=== PATIENT | male | born 1960 | race Caucasian/White ===

== ENCOUNTER 2017-01-08 09:30 | Emergency (ER) | payer BC ==
[2017-01-08 09:58] LABS: Basophils % (Auto) 0.3 % (0.0-1.8); Eosinophils % (Auto) 0.2 % (0.0-4.3); Hematocrit 42.2 % (35.5-45.6); Hemoglobin 13.6 gm/dl (11.8-15.2); Mean Corpuscular HGB Conc 32 % (32-34); Mean Corpuscular Hemoglobin 27 pg (28-32); Mean Corpuscular Volume 85 fl (84-94); Platelet Count 107 K/mm3 (140-440); Red Blood Count 4.99 M/mm3 (3.65-5.03); Red Cell Distribution Width 15.2 % (13.2-15.2); White Blood Count 16.5 K/mm3 (4.5-11.0)
[2017-01-08 10:22] LABS: Albumin 3.4 g/dL (3.9-5); Albumin/Globulin Ratio 0.9 %; BUN/Creatinine Ratio 17.33; Bilirubin,Total 0.3 mg/dL (0.1-1.2); Calcium 9.1 mg/dL (8.4-10.2); Chloride 99.3 mmol/L (98-107); Potassium 3.8 mmol/L (3.6-5.0)
[2017-01-08 11:02] LABS: Bacteria,Urine 1+ /HPF (Negative); Bilirubin,Urine NEG (Negative); Blood,Urine SM (Negative); Ketones,Urine TR mg/dL (Negative); Leukocyte Esterase,Urine MOD (Negative); Mucus,Urine 3+ /HPF; Nitrite,Urine NEG (Negative)
[2017-01-08] MEDS ORDERED: MORPHINE IV ONE ×2 (17:32→23:43)
[2017-01-08] MEDS ORDERED: NACL 0.9% 1000 ML 1,000 ML IV ONE (17:33)
[2017-01-08] MEDS ORDERED: ZOFRAN IV ONE (17:34)
--- NOTE | 2017-01-08 17:35 | Emergency Department Report ---
<NIYAH BORDEN - Last Filed: 01/08/17 23:47> ED Male HPI - General Chief complaint: Abdominal Pain Stated complaint: FEVER/POSS KIDNEY STONE INFECTION Time Seen by Provider: 01/08/17 17:18 Source: patient Mode of arrival: Ambulatory Limitations: No Limitations - History of Present Illness Initial comments: 56-year-old male past medical history diabetes presents with complaint of 3-4 days of dysuria intermittent fever and chills. Patient denies any nausea or vomiting, states he is having mild lower abdominal pain and region of bladder. States he has had some difficulty voiding urine over the last several days but is able to void some urine. States urine is slightly darker in color. Asked patient admits he is having some mild discomfort defecating and sitting. Denies any trauma to abdomen or an region. Denies any testicular swelling or penile discharge. Denies any new back or flank pain. Patient accompanied by . Patient appears uncomfortable, states he is experiencing discomfort as he urinates and in his bladder region. Is AAOx3, fully lucid but appears slightly fatigues. MD Complaint: dysuria, other Onset/Timin -: days(s) Severity: moderate Severity scale (0 -10): 6 Quality: aching Consistency: constant Worsens with: urination dysuria, fever - Related Data Previous Rx's Medication Instructions Recorded Last Taken Type Ciprofloxacin HCl [Ciprofloxacin 500 mg PO Q12HR #42 tab 01/09/17 Unknown Rx TAB] Ibuprofen [Motrin] 800 mg PO Q8HR PRN #40 tablet 01/09/17 Unknown Rx Phenazopyridine [Pyridium] 100 mg PO BID #10 tab 01/09/17 Unknown Rx Allergies Allergy/AdvReac Type Severity Reaction Status Date / Time No Known Allergies Allergy Unverified 01/08/17 09:38 ED Review of Systems ROS: Stated complaint: FEVER/POSS KIDNEY STONE INFECTION Other details as noted in HPI Constitutional: chills, fever, malaise Eyes: denies: eye pain, eye discharge, vision change ENT: denies: ear pain, throat pain Respiratory: denies: cough, shortness of breath, wheezing Cardiovascular: denies: chest pain, palpitations Endocrine: no symptoms reported Gastrointestinal: as per HPI (suprapubic discomfort). denies: abdominal pain, nausea, diarrhea Genitourinary: urgency, dysuria Musculoskeletal: denies: back pain, joint swelling, arthralgia Skin: denies: rash, lesions Neurological: denies: headache, weakness, paresthesias Psychiatric: denies: anxiety, depression Hematological/Lymphatic: denies: easy bleeding, easy bruising ED Past Medical Hx - Past Medical History Previous Medical History?: Yes Hx CVA: Yes (2014, report "strss stroke") Hx Diabetes: Yes - Surgical History Past Surgical History?: No - Social History Smoking Status: Current Every Day Smoker Substance Use Type: Alcohol, Prescribed - Medications Home Medications: Home Medications Medication Instructions Recorded Confirmed Last Taken Type Ciprofloxacin HCl [Ciprofloxacin 500 mg PO Q12HR #42 tab 01/09/17 Unknown Rx TAB] Ibuprofen [Motrin] 800 mg PO Q8HR PRN #40 tablet 01/09/17 Unknown Rx Phenazopyridine [Pyridium] 100 mg PO BID #10 tab 01/09/17 Unknown Rx ED Physical Exam - General Limitations: No Limitations General appearance: alert, in no apparent distress - Head Head exam: Present: atraumatic, normocephalic - Eye Eye exam: Present: normal appearance, PERRL, EOMI - ENT ENT exam: Present: mucous membranes moist - Neck Neck exam: Present: normal inspection, full ROM - Respiratory Respiratory exam: Present: normal lung sounds bilaterally. Absent: respiratory distress - Cardiovascular Cardiovascular Exam: Present: regular rate, normal rhythm. Absent: systolic murmur, diastolic murmur, rubs, gallop - GI/Abdominal GI/Abdominal exam: Present: soft, tenderness (mild suprapubic tenderness), normal bowel sounds - Rectal Rectal exam: Present: deferred, prostate tenderness (+ pain on JSOE LUIS) - Extremities Exam Extremities exam: Present: normal inspection - Back Exam Back exam: Present: normal inspection - Neurological Exam Neurological exam: Present: alert, oriented X3, CN II-XII intact, normal gait - Psychiatric Psychiatric exam: Present: normal affect, normal mood - Skin Skin exam: Present: warm, dry, intact, normal color. Absent: rash ED Course Vital Signs 01/08/17 01/08/17 01/08/17 09:38 17:19 18:33 Temperature 97.4 F L 99.9 F H Pulse Rate 94 H 116 H Respiratory 20 22 18 Rate Blood Pressure 152/99 172/100 Blood Pressure [Right] O2 Sat by Pulse 100 97 Oximetry 01/08/17 01/09/17 23:30 02:19 Temperature 102.7 F H 100.1 F H Pulse Rate 108 H 77 Respiratory 22 18 Rate Blood Pressure Blood Pressure 138/67 131/67 [Right] O2 Sat by Pulse 98 97 Oximetry ED Medical Decision Making - Lab Data Result diagrams: 01/08/17 09:47 01/08/17 09:47 - Medical Decision Making A/P: Cystitis, clinical prostatitis, SIRS, fever 1-patient treated empirically with 1 g of ceftriaxone IV IV fluid 2-pt is able to void urine, has voided approximately 200 mL of urine in the last 3-4 hours= ~ 66cc/hour, does not meet def of oliguria 3- + pain on JOSE LUIS, with urinary symptoms and + prostate enlargement on CT pts constellation of symptoms may be due to clinical 4- IVF rescuscitation, tylenol for fever, recheck VS. Plan to admit if pts vitals do not stabilize with further IVF resus and antipyretics, if VS stabilize and pt is continually voiding urine can be DC'd with 1 month course of ABX for prostatitis and cross coverage for cystitis Critical care attestation.: If time is entered above; I have spent that time in minutes in the direct care of this critically ill patient, excluding procedure time. ED Disposition Clinical Impression: Prostatitis Qualifiers: Prostatitis type: acute Qualified Code(s): N41.0 - Acute prostatitis UTI (urinary tract infection) Qualifiers: Urinary tract infection type: acute cystitis Hematuria presence: with hematuria Qualified Code(s): N30.01 - Acute cystitis with hematuria Disposition: DISCHARGED TO HOME OR SELFCARE Condition: Stable Instructions: Prostatitis (ED), Dysuria (ED), Urinary Tract Infection in Men ( ED) Additional Instructions: Follow-up with urologist as discussed Take your medication as discussed prescribed may she complete all doses for the next 21 days. If any worsening or new symptoms return to ED Prescriptions: Ciprofloxacin HCl [Ciprofloxacin TAB] 500 mg PO Q12HR #42 tab Ibuprofen [Motrin] 800 mg PO Q8HR PRN #40 tablet PRN Reason: Pain Phenazopyridine [Pyridium] 100 mg PO BID #10 tab Referrals: AI REDMAN MD [Primary Care Provider] - 3-5 Days KHUSHBOO LEUNG MD [Staff Physician] - 3-5 Days ALVARO SHAH MD [Referring] - 3-5 Days [facility] [Outside] - 3-5 Days Forms: Work/School Release Form(ED) <WAQAS HAYESMARCELLEDAPHNE Latif - Last Filed: 01/09/17 03:24> ED Medical Decision Making - Lab Data Result diagrams: 01/08/17 09:47 01/08/17 09:47 - Medical Decision Making 5. After 4 L of fluids, Tylenol, Motrin patient's vitals improved. Pulse reduced, fever reduced. 6. Discussed the patient follow-up. Walk with urology. Discussed the importance of follow-up in 3-5 days. 7. Discussed with patient and patient will go home on antibiotics for the next 3 weeks. Discussed the patient importance of follow intake all prescriptions to completion. 8. Patient received Motrin prior to discharge. Patient reports feeling much better. Patient understands all instructions given. Patient verbally states he will follow up with urology and take his medication as prescribed. Discussed case with attending Dr. Avendaño who agrees with plan for patient to be discharged on antibiotic coverage and follow-up. With urology ED Disposition Is pt being admited?: No Does the pt Need Aspirin: No Time of Disposition: 03:20
--- NOTE | 2017-01-08 18:51 | Cat Scan Report ---
FINAL REPORT PROCEDURE: CT ABDOMEN PELVIS WO CON TECHNIQUE: Computerized axial tomography of the abdomen and pelvis was performed without intravenous contrast. This study is performed without intravascular contrast material and its sensitivity for abdominal and pelvic pathology, including neoplasms, inflammation, abscess, free fluid, thrombosis, arterial dissection and infarction, is reduced compared with a contrast enhanced study. HISTORY: renal colic, scan down to groin please COMPARISON: No prior studies are available for comparison. FINDINGS: Visualized lower thorax: No significant abnormality. Liver: Normal size and attenuation. Spleen: Normal size and attenuation. Gallbladder and biliary system: Normal. Pancreas: Normal. Adrenals: Normal. Kidneys: No hydronephrosis or urolithiasis. GI tract: The appendix is visualized and does not appear inflamed. No bowel obstruction or acute inflammation is seen. There is mild sigmoid diverticulosis. Lymph nodes and mesentery: Normal. Vasculature: Normal. Bladder: There is stranding surrounding the urinary bladder, concerning for cystitis. Reproductive organs: Prominent prostate gland. Bilateral scrotal hydroceles, not fully evaluated Peritoneum: No free fluid. Musculoskeletal structures: Degenerative disc changes at L4-5 and L5-S1. Other: None. IMPRESSION: Stranding surrounding the urinary bladder is concerning for cystitis. Bilateral scrotal hydroceles are not fully evaluated.
[2017-01-08] MEDS ORDERED: ROCEPHIN/NS 1 GM/50 ML 1 GM/50 ML BAG IV ONE (19:04)
[2017-01-08] MEDS ORDERED: LACTATED RINGERS 1,000 ML IV ONE (22:13)
[2017-01-08] MEDS ORDERED: TYLENOL PO ONE (23:29)
[2017-01-08] MEDS ORDERED: NACL 0.9% 1000 ML 2,000 ML IV ONE (23:30)
[2017-01-08] MEDS ORDERED: TORADOL IV ONE (23:31)
[2017-01-09] MEDS ORDERED: NACL 0.9% 1000 ML 1,000 ML IV ONE (02:08)
[2017-01-09 05:03] VITALS: BP 160/80
== END 2017-01-09 05:02 | disposition home or self-care (01) ==
LOC: ED 09:30
DX: N41.0 Acute prostatitis (principal); N30.01 Acute cystitis with hematuria; E11.9 Type 2 diabetes mellitus without complications; Z86.73 Personal history of transient ischemic attack (TIA), and cerebral infarction without residual deficits; F17.200 Nicotine dependence, unspecified, uncomplicated
CPT/HCPCS: 36415; 74176; 80053; 81001; 82550; 83690; 85025; 87086; 96361; 96365; 96375; 96376; 99284; J0696; J1885; J2270; J2405; J7030; J7120